=== PATIENT | male | born 1985 | race Caucasian/White ===

== ENCOUNTER 2024-03-24 16:46 | Emergency (ER) | payer OTHER ==
[~2024-03-24] VITALS: Ht 167.6 cm; Wt 86.2 kg
[2024-03-24 16:51] VITALS: BP 132/89; PULSE 81; RESP 18; TEMP 97.8; O2SAT 97
[2024-03-24 17:02] VITALS: O2SAT 99
[2024-03-24] MEDS ORDERED: DICL100G32 TP (17:28)
[2024-03-24] MEDS ORDERED: IBUP-2213 PO (17:28)
[2024-03-24] MEDS ORDERED: IBUPROFEN 600 MG TAB ONE (17:31)
[2024-03-24] MEDS: IBUPROFEN 600 MG TAB PO ONE (17:36)
[2024-03-24 17:52] VITALS: BP 132/89; PULSE 81; RESP 18; TEMP 97.8; O2SAT 99
== END 2024-03-24 17:52 | disposition home or self-care (01) ==
LOC: MED 16:46
DX: G44.209 Tension-type headache, unspecified, not intractable (principal); Z79.899 Other long term (current) drug therapy
CPT/HCPCS: 99282